=== PATIENT | male | born 1955 | race Caucasian/White ===

== ENCOUNTER 2025-07-10 13:53 | Emergency (ER) | payer MEDICARE, SELFPAY ==
[2025-07-10 13:55] VITALS: BP 162/72
--- NOTE | 2025-07-10 15:42 | ED.GENMED ---
History of Present Illness
General
Chief Complaint: Musculo-Skeletal Complaint
Time Seen by Provider: 07/10/25 15:02
History of Present Illness
History of Present Illness:
69-year-old male presents to the emergency department for evaluation of injury struck directly on the thumb by a softball. States that his nail was bent backwards. Bleeding is not controlled. Last tetanus unknown
Review of Systems
Review of Systems
Allergies reviewed?: Yes
All Other Systems: ROS reviewed and negative except as documented in HPI and ROS
Phy Exam
Physical Exam
Physical Exam:
GEN: Well appearing, NAD, WDWN
HEENT: Oral mucosa moist, no scleral icterus
Cardiac: Regular rate
Lung: No respiratory distress, no tachypnea
MSK: Right thumb nail plate clearly partially avulsed however it is well-approximated at this point with only scant bleeding from the nailbed, mild ecchymosis to the thumb, no gross deformity
Skin: Good color, no pallor or jaundice, no rashes
Neuro: AO x3, moves all extremities freely
Psych: Calm, cooperative
Course
Orders/Labs/Results
Orders:
Orders
07/10/25 14:00
Thumb/Finger 2 View Rt [CR Finger(s)/thumb Min 2 Vw Rt] Urgent
Comment:
Reason For Exam: injury
07/10/25 15:43
Tetanus/Diphth/Acelpertussis [Adacel] 0.5 ml IM .ONCE ONE
Vital Signs
Initial and Last Documented VS:
Initial Vital Signs
Temp Pulse Resp BP Pulse Ox
98.7 F 58 16 162/72 98
07/10/25 13:55 07/10/25 13:55 07/10/25 13:55 07/10/25 13:55 07/10/25 13:55
Last Documented Vital Signs
Temp Pulse Resp BP Pulse Ox
98.7 F 58 16 162/72 98
07/10/25 13:55 07/10/25 13:55 07/10/25 13:55 07/10/25 13:55 07/10/25 15:43
MDM/Problems Addressed
MDM/Problems Addressed:
The nail plate is still well aligned and subungual hematoma has essentially evacuated itself. He does have a minor tuft fracture. Will place on empiric antibiotics for suspected open tuft fracture, discussed supportive care otherwise
*Pulse Oximetry
SaO2: 98
Oxygen Mode of Delivery: Room air
Patient hypoxic: no
*Critical Care Note
Total Time (30-74mins, 75-104mins- exclusive of procedures): Not Applicable
ED Attending Note
-
Portions of this chart may have been created with voice recognition software.� Occasional wrong word or��sound alike� substitutions may have occurred due to the inherent limitations of voice recognition software.
Discharge Plan
Departure
Patient Disposition: Home (Routine Discharge)
Date of Disposition: 07/10/25
Time of Disposition: 15:42
Patient with high blood pressure during this ER visit?: No
Discharge Problem:
Avulsion of nail of right thumb, Closed fracture of tuft of distal phalanx of right thumb
Instructions: Nail Avulsion (DC)
Prescriptions:
New
cephalexin 500 mg capsule
500 mg PO Q8H 5 Days Qty: 15 0RF
Referrals:
Steven Fang MD [Family Provider, Internal Medicine]
Activity Restrictions/Additional Instructions:
Change dressing and clean wound with soap and water each day
Keep a compression dressing on the wound each day to prevent the nail from lifting off the nail bed
Begin antibiotics promptly
Interventions
Interventions:
*Risk Screen - Suicide Last Done: 07/10/25 13:55
*Neglect/Abuse Screening Last Done: 07/10/25 13:55
*ED COVID-19 Vaccine History Last Done: 07/10/25 14:03
*Nursing Disposition Last Done: 07/10/25 16:15
ED-Musculoskeletal Assessment Last Done: 07/10/25 16:00
Discharge Date and Time
Discharge Date/Time: 07/10/25 16:17
Print Language: JORDANIAN
[2025-07-10] MEDS: ADACEL 0.5 ML IM (16:07)
== END 2025-07-10 16:17 | disposition home or self-care (01) ==
LOC: EMR 13:53
PROVIDERS: EMERGENCY PHYSICIAN Emergency Medicine; FAMILY PHYSICIAN Internal Medicine
DX: S62.521A Displaced fracture of distal phalanx of right thumb, initial encounter for closed fracture (principal); S61.101A Unspecified open wound of right thumb with damage to nail, initial encounter; W21.07XA Struck by softball, initial encounter; Z23 Encounter for immunization
CPT/HCPCS: 99283; 90471; 73140; 90715